=== PATIENT | female | born 1950 | race Caucasian/White ===

== ENCOUNTER 2020-09-04 20:06 | Observation (INO) ==
[2020-09-04] MEDS ORDERED: Isovue-370 500 ML BOTTLE IVP ONE (20:33)
[2020-09-04 20:59] LABS: Basophils % 0.1 %; Eosinophils # 0.2 K/mcL (0.0-0.6); Eosinophils % 2.8 %; Hematocrit 27.1 % (35.3-44.9); Hemoglobin 8.5 g/dL (11.5-15.4); Immature Granulocytes % 0.7 % (0-4); Lymphocytes # 1.2 K/mcL (0.6-4.6); Lymphocytes % 16.8 %; Mean Corpuscular HGB Conc 31.4 g/dL (31.6-35.5); Mean Corpuscular Hemoglobin 26.5 pg (28.0-33.3); Mean Corpuscular Volume 84.4 fL (83.0-100.0); Monocytes # 0.2 K/mcL (0.0-1.3); Monocytes % 2.2 %; Neutrophils # 5.3 K/mcL (1.6-8.9); Platelet Count 317 K/mcL (140-400); Red Blood Count 3.21 M/mcL (3.82-4.97); Red Cell Distribution Width 14.6 % (11.5-14.5); Segmented Neutrophils % 77.4 %
[2020-09-04 21:02] LABS: White Blood Count 6.9 K/mcL (4.3-11.1)
[2020-09-04 21:03] LABS: Bacteria,Urine Few per hpf (None-Few); Bilirubin,Urine Negative (Negative); Blood,Urine Moderate (Negative); Clarity,Urine Turbid (Clear); Color,Urine Yellow (Yellow); Glucose,Urine (UA) Normal (Normal); Ketones,Urine Negative (Negative); Leukocyte Esterase,Urine Large (Negative); Mucus,Urine Few per lpf (None-Few); Nitrite,Urine Positive (Negative); PH,Urine 6.5 pH Units (5.0-8.0); Protein,Urine 100 mg/dL (Neg-Trace); Specific Gravity,Urine 1.011 (1.010-1.025); Urobilinogen,Urine Normal (Normal); WBC,Urine TNTC per hpf (0-3)
[2020-09-04 21:06] LABS: INR 1.5; Prothrombin Time 17.2 Seconds (9.4-12.1)
[2020-09-04 21:09] LABS: Activated Partial Thrombo Time 30.7 Seconds (26.0-36.0)
[2020-09-04] MEDS ORDERED: 0.9 % Sodium Chloride 1,000 ML IVC ONE (21:15)
[2020-09-04] MEDS ORDERED: cefTRIAXone 1,000 MG in Water for inj. (sterile) 10 ML IVP ONE (21:15)
[2020-09-04 21:23] LABS: Alanine Aminotransferase 31 Units/L (7-52); Albumin 2.7 g/dL (3.5-5.7); Albumin/Globulin Ratio 0.8 (1.1-2.2); Alkaline Phosphatase 194 Units/L (34-104); Aspartate Amino Transferase 35 Units/L (13-39); BUN/Creatinine Ratio 48 (6-26); Bilirubin,Direct 0.2 mg/dL (0.0-0.2); Bilirubin,Indirect 0.4 mg/dL (0.0-1.0); Bilirubin,Total 0.6 mg/dL (0.3-1.0); Blood Urea Nitrogen 19 mg/dL (8-23); Calcium 8.4 mg/dL (8.6-10.3); Carbon Dioxide 25 mEq/L (23-29); Chloride 98 mEq/L (98-107); Globulin 3.5 g/dL (2.4-3.5); Glucose 113 mg/dL (70-105); Osmolality,Calculated 279 (280-300); Potassium 2.8 mEq/L (3.5-5.1); Sodium 133 mEq/L (136-145); Total Protein 6.2 g/dL (6.4-8.9); Troponin I < 0.03 ng/mL (< 0.04); eGFR For African Americans > 60 (> 60); eGFR For Non-African Americans > 60 (> 60)
[2020-09-04] MEDS ORDERED: *HR* OxyCODONE/APAP 5/325 TABLET PO ONE (21:23)
[2020-09-04] MEDS ORDERED: Potassium Phosphate 44 MEQ in 0.9 % Sodium Chloride 250 ML IVPB ONE (21:39)
[2020-09-04 22:24] LABS: Magnesium 1.7 mg/dL (1.6-2.6)
[2020-09-05] MEDS ORDERED: Ibuprofen 600 MG TABLET PO ONE (10:32)
[2020-09-05] MEDS ORDERED: *HR* OxyCODONE/APAP 5/325 TABLET PO ONE ×2 (10:32→16:49)
[2020-09-05] MEDS ORDERED: dexAMETHasone 4 MG TABLET PO SCH (10:45)
[2020-09-05] MEDS: 0.9 % Sodium Chloride 1,000 ML IVC SCH ×2 (10:52→22:38)
[2020-09-05] MEDS: amLODIPine 5 MG TABLET PO SCH (11:48)
[2020-09-05] MEDS: Ondansetron ODT 4 MG TAB.RAPDIS SL PRN (11:48)
[2020-09-05] MEDS: Famotidine 400 MG/50 ML ORAL SUSPENSION PO SCH ×2 (13:02→23:37)
[2020-09-05] MEDS: Megestrol Acetate 400 MG/10 ML UDC PO SCH ×2 (13:32→22:21)
[2020-09-05] MEDS ORDERED: Naloxone 0.4 MG/ML INJ IVP PRN (17:32)
[2020-09-05] MEDS ORDERED: Acetaminophen 325 MG TABLET PO PRN (17:32)
[2020-09-05] MEDS ORDERED: *HR* FentaNYL (PF) 100 MCG/2 ML VIAL IVP ONE (17:34)
[2020-09-05] MEDS ORDERED: cefTRIAXone 1,000 MG in 0.9 % Sodium Chloride Mini Bag 100 ML IVPB SCH (18:00)
[2020-09-05] MEDS ORDERED: cefTRIAXone 1,000 MG in Water for inj. (sterile) 10 ML IVP SCH (21:00)
[2020-09-05] MEDS: Ipratropium/Albuterol Neb 3 ML IH SCH (22:48)
[2020-09-05] MEDS: Lidocaine OINT 35.44 GM TUBE TP SCH (23:37)
[2020-09-06] MEDS: Famotidine 400 MG/50 ML ORAL SUSPENSION PO SCH ×3 (00:46→16:42)
[2020-09-06 02:00] LABS: Basophils % 0.4 %; Eosinophils # 0.2 K/mcL (0.0-0.6); Eosinophils % 3.1 %; Hematocrit 25.9 % (35.3-44.9); Hemoglobin 7.9 g/dL (11.5-15.4); Immature Granulocytes % 0.6 % (0-4); Lymphocytes % 20.5 %; Mean Corpuscular HGB Conc 30.5 g/dL (31.6-35.5); Mean Corpuscular Hemoglobin 26.4 pg (28.0-33.3); Mean Corpuscular Volume 86.6 fL (83.0-100.0); Mean Platelet Volume 9.3 fL (9.4-12.4); Monocytes # 0.4 K/mcL (0.0-1.3); Monocytes % 7.6 %; Neutrophils # 3.3 K/mcL (1.6-8.9); Platelet Count 312 K/mcL (140-400); Red Blood Count 2.99 M/mcL (3.82-4.97); Red Cell Distribution Width 14.7 % (11.5-14.5); Segmented Neutrophils % 67.8 %; White Blood Count 4.8 K/mcL (4.3-11.1)
[2020-09-06 02:08] LABS: BUN/Creatinine Ratio 28 (6-26); Blood Urea Nitrogen 8 mg/dL (8-23); Calcium 7.7 mg/dL (8.6-10.3); Carbon Dioxide 23 mEq/L (23-29); Chloride 101 mEq/L (98-107); Glucose 97 mg/dL (70-105); Magnesium 1.6 mg/dL (1.6-2.6); Osmolality,Calculated 274 (280-300); Phosphorous 2.1 mg/dL (2.7-4.5); Potassium 2.8 mEq/L (3.5-5.1); Sodium 133 mEq/L (136-145); eGFR For African Americans > 60 (> 60); eGFR For Non-African Americans > 60 (> 60)
[2020-09-06 02:10] LABS: % Iron Saturation 13 % (15-50); Iron 22 mcg/dL (50-170); Transferrin 119 mg/dL (203-362)
[2020-09-06 02:28] LABS: Ferritin > 1500 ng/mL (10-120)
[2020-09-06 02:34] LABS: Folate 9.4 ng/mL (3.0-16.0)
[2020-09-06] MEDS ORDERED: Potassium Chloride 40 MEQ, Lidocaine 1% 2 ML in 0.9 % Sodium Chloride 500 ML IVPB ONE (02:45)
[2020-09-06] MEDS: Ipratropium/Albuterol Neb 3 ML IH SCH ×4 (04:26→21:34)
[2020-09-06] MEDS ORDERED: *HR* Enoxaparin 40 MG/0.4 ML SYRINGE SQ SCH (06:00)
[2020-09-06] MEDS: *HR* OxyCODONE Immed Rel 5 MG TABLET PO PRN ×2 (06:03→14:13)
[2020-09-06] MEDS: 0.9 % Sodium Chloride 1,000 ML IVC SCH ×3 (06:09→22:28)
[2020-09-06] MEDS ORDERED: Iron Sucrose Complex 400 MG in 0.9 % Sodium Chloride 250 ML IVPB ONE (07:01)
[2020-09-06] MEDS: Cyanocobalamin (B-12) 1,000 MCG TABLET PO SCH (07:53)
[2020-09-06] MEDS: amLODIPine 5 MG TABLET PO SCH (07:53)
[2020-09-06] MEDS: Megestrol Acetate 400 MG/10 ML UDC PO SCH ×2 (07:54→19:57)
[2020-09-06] MEDS: Lidocaine OINT 35.44 GM TUBE TP SCH (07:54)
[2020-09-06] MEDS ORDERED: *HR* LORazepam 0.5 MG TABLET PO PRN (08:39)
[2020-09-06] MEDS ORDERED: DEXAMETHASONE 8 MG PO SCH (09:00)
[2020-09-06] MEDS ORDERED: NON-FORMULARY MEDICATION 1 EACH EACH (Pantoprazole Sodium 40 MG) PO SCH (09:00)
[2020-09-06] MEDS: Ertapenem 1,000 MG in 0.9 % Sodium Chloride Mini Bag 100 ML IVPB SCH (11:13)
[2020-09-06 13:52] LABS: Bilirubin,Urine Negative (Negative); Blood,Urine Large (Negative); Clarity,Urine Ex.Turbid (Clear); Color,Urine Light-Brown (Yellow); Glucose,Urine (UA) Normal (Normal); Ketones,Urine Negative (Negative); Leukocyte Esterase,Urine Large (Negative); Nitrite,Urine Negative (Negative); PH,Urine 6.5 pH Units (5.0-8.0); Protein,Urine 100 mg/dL (Neg-Trace); Specific Gravity,Urine 1.011 (1.010-1.025); Urobilinogen,Urine Normal (Normal)
[2020-09-06 14:06] LABS: Bacteria,Urine Many per hpf (None-Few); Renal Epithelial Cells,Urine Few per hpf (None-Few); Squamous Epithelial Cell,Urine Few per hpf (None-Few); Transitional Epi Cells,Urine Few per hpf (None-Few); WBC,Urine TNTC per hpf (0-3)
[2020-09-06 14:07] LABS: RBC,Urine 15-30 per hpf (0-3)
[2020-09-06] MEDS ORDERED: Ipratropium/Albuterol Neb 3 ML IH PRN (22:06)
[2020-09-07 03:35] LABS: Hematocrit 22.4 % (35.3-44.9); Hemoglobin 6.9 g/dL (11.5-15.4); Mean Corpuscular HGB Conc 30.8 g/dL (31.6-35.5); Mean Corpuscular Hemoglobin 26.4 pg (28.0-33.3); Mean Corpuscular Volume 85.8 fL (83.0-100.0); Mean Platelet Volume 8.9 fL (9.4-12.4); Platelet Count 264 K/mcL (140-400); Red Blood Count 2.61 M/mcL (3.82-4.97); Red Cell Distribution Width 14.8 % (11.5-14.5); White Blood Count 4.2 K/mcL (4.3-11.1)
[2020-09-07 03:51] LABS: BUN/Creatinine Ratio 19 (6-26); Blood Urea Nitrogen 4 mg/dL (8-23); Calcium 7.4 mg/dL (8.6-10.3); Carbon Dioxide 25 mEq/L (23-29); Chloride 102 mEq/L (98-107); Glucose 100 mg/dL (70-105); Osmolality,Calculated 273 (280-300); Potassium 3.3 mEq/L (3.5-5.1); Sodium 133 mEq/L (136-145); eGFR For African Americans > 60 (> 60); eGFR For Non-African Americans > 60 (> 60)
[2020-09-07] MEDS ORDERED: 0.9 % Sodium Chloride 250 ML IVC SCH (05:00)
[2020-09-07] MEDS ORDERED: Calcium Gluconate 1gm/50mL 1 GM/50 ML BAG IVPB ONE (07:56)
[2020-09-07] MEDS: *HR* OxyCODONE Immed Rel 5 MG TABLET PO PRN ×2 (08:41→16:02)
[2020-09-07 09:06] LABS: Magnesium 1.7 mg/dL (1.6-2.6); Phosphorous 1.8 mg/dL (2.7-4.5)
[2020-09-07] MEDS: amLODIPine 5 MG TABLET PO SCH (09:51)
[2020-09-07] MEDS: Multivit/Ca/Min/Fe/FA 1 TAB TABLET PO SCH (09:51)
[2020-09-07] MEDS: Ertapenem 1,000 MG in 0.9 % Sodium Chloride Mini Bag 100 ML IVPB SCH (09:51)
[2020-09-07] MEDS: Megestrol Acetate 400 MG/10 ML UDC PO SCH ×2 (09:51→20:27)
[2020-09-07] MEDS: Cyanocobalamin (B-12) 1,000 MCG TABLET PO SCH (09:51)
[2020-09-07] MEDS: Famotidine 400 MG/50 ML ORAL SUSPENSION PO SCH ×2 (09:52→16:02)
[2020-09-07] MEDS: Lidocaine OINT 35.44 GM TUBE TP SCH (10:11)
[2020-09-07] MEDS: 0.9 % Sodium Chloride 1,000 ML IVC SCH ×2 (11:54→20:33)
[2020-09-07 12:42] LABS: Basophils % 0.2 %; Eosinophils # 0.1 K/mcL (0.0-0.6); Eosinophils % 1.6 %; Hematocrit 24.9 % (35.3-44.9); Immature Granulocytes % 0.7 % (0-4); Lymphocytes % 22.9 %; Mean Corpuscular HGB Conc 32.1 g/dL (31.6-35.5); Mean Corpuscular Hemoglobin 27.3 pg (28.0-33.3); Mean Platelet Volume 8.9 fL (9.4-12.4); Monocytes # 0.7 K/mcL (0.0-1.3); Monocytes % 14.7 %; Neutrophils # 2.6 K/mcL (1.6-8.9); Platelet Count 260 K/mcL (140-400); Red Blood Count 2.93 M/mcL (3.82-4.97); Red Cell Distribution Width 14.6 % (11.5-14.5); Segmented Neutrophils % 59.9 %; White Blood Count 4.4 K/mcL (4.3-11.1)
[2020-09-08] MEDS: 0.9 % Sodium Chloride 1,000 ML IVC SCH ×2 (03:51→13:00)
[2020-09-08 08:18] LABS: Basophils % 0.3 %; Eosinophils % 0.8 %; Hematocrit 27.7 % (35.3-44.9); Hemoglobin 8.7 g/dL (11.5-15.4); Immature Granulocytes % 0.3 % (0-4); Lymphocytes # 1.2 K/mcL (0.6-4.6); Lymphocytes % 32.7 %; Mean Corpuscular HGB Conc 31.4 g/dL (31.6-35.5); Mean Corpuscular Hemoglobin 27.3 pg (28.0-33.3); Mean Corpuscular Volume 86.8 fL (83.0-100.0); Mean Platelet Volume 9.1 fL (9.4-12.4); Monocytes # 0.8 K/mcL (0.0-1.3); Monocytes % 21.9 %; Neutrophils # 1.6 K/mcL (1.6-8.9); Platelet Count 284 K/mcL (140-400); Red Blood Count 3.19 M/mcL (3.82-4.97); Red Cell Distribution Width 14.6 % (11.5-14.5); White Blood Count 3.6 K/mcL (4.3-11.1)
[2020-09-08] MEDS ORDERED: Sennosides/Docusate Sodium TABLET PO PRN (08:26)
[2020-09-08 08:39] LABS: BUN/Creatinine Ratio 16 (6-26); Blood Urea Nitrogen 4 mg/dL (8-23); Calcium 7.9 mg/dL (8.6-10.3); Carbon Dioxide 23 mEq/L (23-29); Chloride 100 mEq/L (98-107); Glucose 93 mg/dL (70-105); Osmolality,Calculated 273 (280-300); Potassium 3.2 mEq/L (3.5-5.1); Sodium 133 mEq/L (136-145); eGFR For African Americans > 60 (> 60); eGFR For Non-African Americans > 60 (> 60)
[2020-09-08 08:47] LABS: Hypochromasia Present (Not Present); Platelet Estimate Normal (Normal)
[2020-09-08] MEDS: amLODIPine 5 MG TABLET PO SCH (09:38)
[2020-09-08] MEDS: Cyanocobalamin (B-12) 1,000 MCG TABLET PO SCH (09:38)
[2020-09-08] MEDS: Megestrol Acetate 400 MG/10 ML UDC PO SCH (09:39)
[2020-09-08] MEDS: *HR* OxyCODONE Immed Rel 5 MG TABLET PO PRN ×2 (09:39→16:28)
[2020-09-08] MEDS: Multivit/Ca/Min/Fe/FA 1 TAB TABLET PO SCH (09:39)
[2020-09-08] MEDS: Famotidine 400 MG/50 ML ORAL SUSPENSION PO SCH ×2 (09:39→16:29)
[2020-09-08] MEDS: Ertapenem 1,000 MG in 0.9 % Sodium Chloride Mini Bag 100 ML IVPB SCH (09:40)
[2020-09-08] MEDS: Lidocaine OINT 35.44 GM TUBE TP SCH (09:53)
[2020-09-08 12:21] VITALS: BP 130/74
[2020-09-08] MEDS: Ondansetron ODT 4 MG TAB.RAPDIS SL PRN (13:00)
== END 2020-09-08 17:20 | disposition short-term general hospital (02) ==
LOC: EMEROOARM 20:06 → 2ANU 20:06 → SUATTDRO 09-05 18:44 → 2ANU 09-05 20:40
PROVIDERS: ADMIT Internal Medicine; ATTEND Internal Medicine